=== PATIENT | female | born 1985 | race Caucasian/White ===

== ENCOUNTER 2024-07-23 21:27 | Inpatient (IN) | payer BC ==
[~2024-07-23] VITALS: Ht 165.1 cm; Wt 80.9 kg
--- NOTE | 2024-07-23 21:33 | NUR ---
2132- PT PRESENTS TO LDR COMPLAINING OF LEAKIN AMNIOTIC FLUID, TO ROOM LR5 PER WHEELCHAIR, CHANGED INTO GOWN. 2141- EFM X2 APPLIED. PT REPORTS AMNIOTIC FLUID LEAKING AT 2129. REPORTS CONTRACTIONS ARE NOT REGULAR OR PAINFUL. SHE DENIES VAGINAL BLEEDING AND STATES SHE IS FEELING BABY MOVE NORMALLY. PLAN OF CARE FOR LABOR CHECK DISCUSSED AND QUESTIONS ANSWERED. 2144- AMNIOTRACE POSITIVE FOR SROM. SVE BY FILEMON Moya RN 4-5/-2 WITH CLEAR FLUID POOLING. 2199- DR DAS CALLED AND ADMISSION ORDERS RECEIVED. 2229- IV START TO LEFT WRIST CHARTED, BLOOD DRAWN FOR LABS, LR INFUSING. 2249- ADMISSION HISTORY AND ASSESSMENT COMPLETE. CONSENTS SIGNED.
[2024-07-23] MEDS ORDERED: LR & Oxytocin 500 ML IV SCH (22:15)
[2024-07-23] MEDS ORDERED: LR 1,000 ML IV SCH (22:15)
[2024-07-23 22:30] VITALS: BP 138/77; PULSE 118; TEMP 97.9
[2024-07-23 22:48] LABS: BASO % 0.2 % (0.0-2.0); EOS # 0.1 K/mm3 (0.0-0.7); EOS % 1.1 % (0.0-4.0); GRAN # 7.7 K/mm3 (1.4-6.5); GRAN % 74.1 % (42.2-75.2); HEMOGLOBIN 10.9 g/dl (12.5-16.0); LYMPH # 1.9 K/mm3 (1.2-3.4); MEAN CELL VOLUME 88 fl (80.0-100.0); MEAN CORPUSCULAR HEMOGLOBIN 30 pg (27-31); MEAN CORPUSCULAR HGB CONC 34 g/dl (33.0-37.0); MEAN PLATELET VOLUME 11.8 fl (7.4-10.4); MONO # 0.6 K/mm3 (0.1-0.6); PLATELET COUNT 213 K/mm3 (130-400); REDCELL DISTRIBUTION WIDTH-CV 15.1 % (11.5-14.5)
[2024-07-23 22:49] LABS: HEMATOCRIT 32.5 % (37.0-47.0)
[2024-07-23 23:00] VITALS: BP 132/82; PULSE 85
[2024-07-23] MEDS ORDERED: QUALITY CHOICE1 TA7 (23:11)
[2024-07-23 23:30] VITALS: BP 113/60; PULSE 78
[2024-07-24] VITALS (29 sets, daily range): BP systolic 110–142; BP diastolic 56–87; PULSE 51–141; TEMP 98–98.5
--- NOTE | 2024-07-24 01:05 | NUR ---
IV to INT. Off monitor for intermittent monitoring.
--- NOTE | 2024-07-24 03:10 | NUR ---
Pt reports "I'm starting to feel pressure and I'm ready for my epidural" Lr to bolus rate.
--- NOTE | 2024-07-24 03:20 | NUR ---
Anesthesia notified of pt request for epidural. Pt relaxed and social
--- NOTE | 2024-07-24 04:00 | NUR ---
Explained to pt that anesthesia was with another pt and it would be a little bit longer. Pt continues relxaed and social.
--- NOTE | 2024-07-24 04:20 | NUR ---
MyriamGina W[employer] CONSERVATIONIST into room for epidural placement. Questions invited and answered. Pt moved to sit on edge of bed. EFM monitor tracing maternal heart rate.
--- NOTE | 2024-07-24 04:30 | NUR ---
Pt cries out as anesthesia attempts epidural placement. Emotional support and coaching provided. Anethesia halts attempt and instills more local. PT cries out when anesthesia touches her back. Anesthesia then doses with higher concentration of local. Pt crying when epiduarl needle is out of her back, stating "that hurts so much" Pt unable to diferrentiate if it was sharp pain or pressure. Pt agrees to let anesthesia attempt placement again. Pt cries out when anesthesia touches her back. Pt crying stating "it hurts, it hurts" 0437 Anesthesia stops epidural placement attempt, drape removed. Discusses with pt that epidural is not mandatory and we are not going to force her to have it placed. This RN and and anesthesia leave pt's room so that pt and spouse can have some time to discuss.
--- NOTE | 2024-07-24 05:00 | NUR ---
This RN back into room to find out what pt wants to do about epidural. Pt tearful, starts crying when asked what she wants to do. in bathroom. Pt decides to "forgo the epidural" .
--- NOTE | 2024-07-24 05:43 | NUR ---
Pt requests to go to the bathroom. Off monitor. Ambulates to bathroom with carefu, very slow gait.
--- NOTE | 2024-07-24 06:15 | NUR ---
RECEIVED REPORT FROM EMMY DOTY. AT BEDSIDE TO ASSESS PATIENT. PT REPORTS COMFORTABLE OTHER THAN DURING CTX. NOT FEELING PRESSURE OR URGE TO PUSH. EFM CAT 1. VS STABLE.
--- NOTE | 2024-07-24 07:55 | NUR ---
AT BEDSIDE. SVE /0. PT TOLERATED FAIR.
--- NOTE | 2024-07-24 08:14 | NUR ---
PT REPORTS INCREASED PRESSURE, SVE AL/100/0. TOLERATED WELL.
--- NOTE | 2024-07-24 08:34 | NUR ---
AT BEDSIDE FOR DELIVERY. PT /+1. NURSERY AND CHARGE NOTIFIED. 0834 OF VIABLE FEMALE INFANT PER . SHOULDERS DELIVERED 75 SECONDS AFTER HEAD D/T MATERNAL EFFORT. MARTHA MANEUVER USED, STOOL AT BEDSIDE NOT NEEDED. PLACED ON MATERNAL ABDOMEN AND CARE ASSUMED BY NURSERY RN. 0838 OF PLACENTA PER . PT TOLERATED WELL. REPAIRED SECOND DEGREE LACERATION. PT TOLERATED WELL. ROOM PUT BACK TOGETHER. QBL 250. 0842 LAP PADS WEIGHED, 22GMS. LOCHIA WNL. FUNDUS FIRM AT U. ICE PACK PAD IN PLACE.
[2024-07-24] MEDS ORDERED: Ibuprofen 800 MG TAB PO SCH (09:00)
[2024-07-24] MEDS ORDERED: Mag/Al Hydrox/Simeth Susp 30 ML CUP PO PRN (09:00)
[2024-07-24] MEDS ORDERED: Measles/Mumps/Rubella Virus Vaccine Live w Diluent 0.5 ML VIAL SQ SCH (09:00)
[2024-07-24] MEDS ORDERED: Prenatal Vitamins/Iron/FA TAB PO SCH (09:00)
[2024-07-24] MEDS ORDERED: Witch Hazel 50% Pads Bulk TUB TP PRN (09:00)
[2024-07-24] MEDS ORDERED: Phenylephrine/Mineral Oil/Petrolatum 57 GM TUBE RC PRN (09:00)
[2024-07-24] MEDS ORDERED: Loratadine 10 MG TAB PO PRN (09:00)
[2024-07-24] MEDS ORDERED: Naloxone 0.4 MG/ML VIAL IV PRN (09:00)
[2024-07-24] MEDS ORDERED: Acetaminophen 500 MG TAB PO SCH (09:00)
[2024-07-24] MEDS ORDERED: Magnes Hydrox (MOM) 80 MG/ML 30 ML CUP PO PRN (09:00)
[2024-07-24] MEDS ORDERED: Sennosides/Docusate 8.6-50 MG TAB PO SCH (17:00)
[2024-07-24] MEDS ORDERED: traZODone 50 MG TAB PO PRN (21:00)
[2024-07-25 07:11] VITALS: BP 118/75; PULSE 56; TEMP 98.3
[2024-07-25] MEDS ORDERED: IBU800 M1 PO (09:39)
--- NOTE | 2024-07-25 12:14 | NUR ---
THIS RN GIVES REPORT TO NIKIA YEE RN.
== END 2024-07-25 12:03 | disposition home or self-care (01) | DRG 769 ==
LOC: LDRO 21:27 → LDR 22:04 → OB 07-24 12:24
PROVIDERS: Obstetrics & Gynecology; ADMIT Obstetrics & Gynecology
PROC: 10E0XZZ Delivery of Products of Conception, External Approach (ICD-10-PCS; principal; 2024-07-23)
PROC: 0KQM0ZZ Repair Perineum Muscle, Open Approach (ICD-10-PCS; 2024-07-23)
DX: O70.1 Second degree perineal laceration during delivery (principal); Z3A.39 39 weeks gestation of pregnancy; O69.81X0 Labor and delivery complicated by cord around neck, without compression, not applicable or unspecified
CPT/HCPCS: J2590; J7120